=== PATIENT | female | born 1990 | race Two or more races ===

== ENCOUNTER 2024-08-18 21:57 | Emergency (ER) | payer OTHER ==
[2024-08-18 22:05] VITALS: BP 115/72; PULSE 87; RESP 16; TEMP 99.6; BMI 25.4
[2024-08-18] MEDS: SODIUM CHLORIDE 1,000 ML IV STA (23:29)
[2024-08-18] MEDS: ACETAMINOPHEN 1000 MG/100 ML BAG IVPB ONE (23:30)
[2024-08-18] MEDS ORDERED: FAMOTIDINE 20 MG/50 ML IVPB 20 MG/50 ML MG IVPB ONE (23:30)
[2024-08-18] MEDS: FAMOTIDINE 20 MG/50 ML IVPB 20 MG/50 ML MG IVPB ONE (23:30)
[2024-08-18] MEDS ORDERED: ONDANSETRON 4 MG/2 ML VIAL ONE (23:30)
[2024-08-18] MEDS: ONDANSETRON 4 MG/2 ML VIAL IVPUSH ONE (23:30)
[2024-08-18] MEDS ORDERED: ACETAMINOPHEN INJECTION 100 ML ONE (23:30)
[2024-08-18 23:43] LABS: BASO % 0.5 % (0-2.0); EOS % 0.7 % (0-4.5); HEMATOCRIT 36.8 % (32.4-45.2); HEMOGLOBIN 11.6 GM/dL (10.7-15.3); MCH 22.5 pg (25.7-33.7); MCHC 31.5 g/dl (32.0-36.0); MEAN CELL VOLUME 71.2 fl (80-96); MEAN PLT VOLUME 9.2 fl (7.5-11.1); MONO % 9.1 % (3.8-10.2); NEUT % 77.7 % (42.8-82.8); PLATELET COUNT 278 10^3/uL (134-434); RBC 5.17 M/mm3 (3.60-5.2); RDW 14.7 % (11.6-15.6); WHITE BLOOD COUNT 9.1 K/mm3 (4.0-10.0)
[2024-08-18 23:46] LABS: URINE APPEARANCE CLEAR; URINE BILIRUBIN NEGATIVE (NEGATIVE); URINE COLOR YELLOW; URINE GLUCOSE (UA) NEGATIVE (NEGATIVE); URINE KETONE NEGATIVE (NEGATIVE); URINE LEUK ESTERASE NEGATIVE (NEGATIVE); URINE NITRITE NEGATIVE (NEGATIVE); URINE PROTEIN 2+ (NEGATIVE); URINE UROBILINOGEN 0.2 mg/dL (0.2-1.0)
[2024-08-19] LABS: ALBUMIN 4.1 g/dl (3.4-5.0); BLOOD UREA NITROGEN 19.5 mg/dL (7-18)
[2024-08-19 00:04] LABS: CREATININE 1.3 mg/dL (0.55-1.3)
[2024-08-19 00:05] LABS: BILIRUBIN,TOTAL 0.5 mg/dL (0.2-1); TOT PROT 7.7 g/dl (6.4-8.2)
[2024-08-19 00:12] LABS: EPI CELLS 5.3 /uL (0-25.1); HYALINE CASTS 0.68 /uL (0-3.1); URINE BACTERIA 20.7 /uL (0-1359); URINE RBC 14.1 /uL (0-23.9); URINE WBC 8.2 /uL (0-25.8)
== END 2024-08-19 00:41 | disposition home or self-care (01) ==
LOC: JER 21:57
PROC: 3E033GC Introduction of Other Therapeutic Substance into Peripheral Vein, Percutaneous Approach (ICD-10-PCS; principal; 2024-08-18)
PROC: 3E033NZ Introduction of Analgesics, Hypnotics, Sedatives into Peripheral Vein, Percutaneous Approach (ICD-10-PCS; 2024-08-18)
PROC: 3E033GC Introduction of Other Therapeutic Substance into Peripheral Vein, Percutaneous Approach (ICD-10-PCS; 2024-08-18)
PROC: 3E0337Z Introduction of Electrolytic and Water Balance Substance into Peripheral Vein, Percutaneous Approach (ICD-10-PCS; 2024-08-18)
DX: R10.13 Epigastric pain (principal); R11.2 Nausea with vomiting, unspecified; Z20.822 Contact with and (suspected) exposure to COVID-19
CPT/HCPCS: 0241U-QW; 36415; 80053; 81003; 83690; 84703; 85025; 87086; 99284-25; J0131